=== PATIENT | male | born 1970 ===

== ENCOUNTER 2020-09-05 03:53 | Emergency (ER) | payer SELFPAY ==
[~2020-09-05] VITALS: Ht 193 cm; Wt 122.2 kg
[2020-09-05] MEDS ORDERED: PROPOFOL 10 MG/ML, 20ML ONE ×2 (04:00→04:50)
[2020-09-05] MEDS ORDERED: SODIUM CHLORIDE FLUSH 10ML SYR IVF ONE (04:00)
--- NOTE | 2020-09-05 04:00 | NUR ---
assumed care of pt. pt resents c/o intermittent palpitations and SOB x2-3 days. pt is diapretic and skin cool. pt denies CP. A&O x4. calm and cooperative. ambulatory without assistance pt states that he has a hx of brief periods of A-fib in the past, but always self-converted. 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 pt has a high caffiene consumption. no other c/o at this time. no family at bedside
--- NOTE | 2020-09-05 04:10 | NUR ---
Dr Canchola has been to bedside or eval. pt to have cardioversion
[2020-09-05 04:25] LABS: BASOPHILS % (AUTO) 1 % (0-1); EOSINOPHILS % (AUTO) 1 % (1-7); LYMPHOCYTES % (AUTO) 30 % (22-44); MEAN CORPUSCULAR HEMOGLOBIN 30.2 pg (27.5-34.5); MEAN CORPUSCULAR HGB CONC 34.2 g/dL (33.2-36.2); MEAN PLATELET VOLUME 9.6 fL (7.4-10.4); MONOCYTES % (AUTO) 8 % (2-9); NEUTROPHILS % (AUTO) 60 % (42-75); PLATELET COUNT 248 x10^3/uL (130-400); RED BLOOD COUNT 5.56 x10^6/uL (4.38-5.82); RED CELL DISTRIBUTION WIDTH 13.8 % (9.4-14.8)
--- NOTE | 2020-09-05 04:25 | NUR ---
consent for cardioversion obtained. prcedural sedation packet initiated CXR at bedside
[2020-09-05 04:34] LABS: ALANINE AMINOTRANSFERASE 40 U/L (12-78); ALBUMIN 4.2 g/dL (3.4-5.0); ANION GAP 6 mmol/L (5-15); CALCIUM 9.2 mg/dL (8.5-10.1); CHLORIDE 109 mmol/L (98-107); CREATININE 1.72 mg/dL (0.7-1.3)
[2020-09-05 04:37] LABS: INTERNATIONAL NORMALIZED RATIO 0.98 (0.93-1.1); PROTHROMBIN TIME 10.5 Seconds (9.6-11.5)
--- NOTE | 2020-09-05 04:39 | NUR ---
pt positioning for comfort. awaiting MD to bedside
[2020-09-05 04:44] LABS: ALKALINE PHOSPHATASE 81 U/L (45-117); BILIRUBIN,TOTAL 0.4 mg/dL (0.2-1.0); T4 (THYROXINE) 9.6 mcg/dL (4.5-12.1); TOTAL PROTEIN 8.3 g/dL (6.4-8.2)
--- NOTE | 2020-09-05 04:50 | NUR ---
Dr Canchola at bedside for procedure Time Out completed. prodecure initiated see procedural sedation packet
--- NOTE | 2020-09-05 05:00 | NUR ---
procedure has been completed. well tlerated. pt restin fin position of comfort
--- NOTE | 2020-09-05 05:30 | NUR ---
Dr Canchola at bedside for recheck pt awake and has no c/o. awake and resting in position of comfort
[2020-09-05 05:58] VITALS: BP 125/70
== END 2020-09-05 06:04 | disposition home or self-care (01) ==
LOC: ED 05:58
DX: I48.91 Unspecified atrial fibrillation (principal); R00.2 Palpitations; R94.4 Abnormal results of kidney function studies
CPT/HCPCS: 36415; 71045; 80053; 83735; 84436; 84443; 85025; 85610; 85730; 92960; 93005; 99152; 99285